=== PATIENT | male | born 1965 ===

== ENCOUNTER 2020-01-23 10:03 | Emergency (ER) | payer SELFPAY ==
[2020-01-23 10:12] VITALS: BP 133/80
[2020-01-23] MEDS ORDERED: HYDROcodone/ACETAMINOPHEN 10-325MG TAB PO ONE (10:56)
[2020-01-23] MEDS ORDERED: IBUPROFEN 600 MG TAB PO ONE (10:56)
--- NOTE | 2020-01-23 11:17 | Emergency Department Report ---
ED Male HPI - General Chief complaint: Abdominal Pain Stated complaint: ABD AND GROIN PAIN Time Seen by Provider: 01/23/20 10:55 Source: patient, family Mode of arrival: Ambulatory Limitations: No Limitations - History of Present Illness Initial comments: 54-year-old -Romanian male presents to the emergency room for 1 day history of right flank pain that radiates to his right testicle. Patient states that the pain is worse with movement or twisting. Patient denies any fever no nausea no vomiting no penile discharge no diarrhea no constipation no hematuria. Patient does report an increase in bowel frequency. Patient denies any past me dical history takes no medications on a daily basis and has no known drug allergies MD Complaint: testicle pain - Related Data Previous Rx's Medication Instructions Recorded Last Taken Type Acetaminophen/Codeine [Tylenol 1 tab PO Q6H PRN #12 tab 01/23/20 Unknown Rx /Codeine # 3 tab] Ibuprofen [Motrin 600 MG tab] 600 mg PO Q8H PRN #30 tablet 01/23/20 Unknown Rx Allergies Allergy/AdvReac Type Severity Reaction Status Date / Time No Known Allergies Allergy Unverified 01/23/20 10:07 ED Review of Systems ROS: Stated complaint: ABD AND GROIN PAIN Other details as noted in HPI ED Past Medical Hx - Past Medical History Previous Medical History?: No - Surgical History Past Surgical History?: No - Social History Smoking Status: Never Smoker Substance Use Type: None - Medications Home Medications: Home Medications Medication Instructions Recorded Confirmed Last Taken Type Acetaminophen/Codeine [Tylenol 1 tab PO Q6H PRN #12 tab 01/23/20 Unknown Rx /Codeine # 3 tab] Ibuprofen [Motrin 600 MG tab] 600 mg PO Q8H PRN #30 tablet 01/23/20 Unknown Rx ED Physical Exam - General Limitations: No Limitations General appearance: alert, in no apparent distress - Head Head exam: Present: atraumatic, normocephalic - Eye Eye exam: Present: normal appearance - ENT ENT exam: Present: mucous membranes moist - GI/Abdominal GI/Abdominal exam: Present: soft. Absent: distended, tenderness - exam: Present: testicular tenderness - Extremities Exam Extremities exam: Present: normal inspection - Back Exam Back exam: Present: normal inspection - Neurological Exam Neurological exam: Present: alert, oriented X3 - Psychiatric Psychiatric exam: Present: normal affect, normal mood - Skin Skin exam: Present: warm, dry, intact, normal color. Absent: rash ED Course Vital Signs 01/23/20 01/23/20 01/23/20 10:07 11:10 11:11 Temperature 98.3 F Pulse Rate 72 Respiratory 18 20 20 Rate Blood Pressure 133/80 O2 Sat by Pulse 99 Oximetry ED Medical Decision Making - Lab Data Result diagrams: 01/23/20 12:05 01/23/20 12:05 - Radiology Data Radiology results: report reviewed Print Report Referring Physician:ESSENCE MONTGOMERYPatient Name:BRY MESAOPatient ID:[id number] of :[id number]:MaleAccession:[id number] Date:2-88-36Kpsrpd Status:Finalized Findings [address] [address] Ultrasound Report Signed Patient: BRY SHUKLA MR#: [id number] : 1965 Acct:[id number] Age/Sex: 54 / M ADM Date: 01/23/20 Loc: ED Attending Dr: Ordering Physician: ISABEL LY Date of Service: 01/23/20 Procedure(s): US testicular doppler comp Accession Number(s): [id number] cc: ISABEL LY US testicular doppler comp INDICATION / CLINICAL INFORMATION: increase pain in right scrotum Doppler ultrasound and spectral analysis was performed on both testicles COMPARISON: None available. FINDINGS: The testicles are normal in size and appearance. A small right-sided hydrocele is present. A small left epididymal cyst is present. Normal symmetric blood flow seen in both testicles. IMPRESSION: 1. Small right-sided hydrocele 2. Small left epididymal cyst 3. Normal symmetric blood flow in both testicles Signer Name: Everton Mclean MD FACR Signed: 01/23/2020 12:53 PM Workstation Name: [id number] Transcribed By: MS Dictated By: Everton Mclean MD Electronically Authenticated By: Everton Mclean MD Signed Date/Time: 01/23/20 1253 DD/ 1241 TD/TT: - Medical Decision Making 54-year-old -Romanian male presents to the emergency room for 1 day history of right flank pain that radiates to his right testicle. Patient states that the pain is worse with movement or twisting. Patient denies any fever no nausea no vomiting no penile discharge no diarrhea no constipation no hematuria. Patient does report an increase in bowel frequency. Patient denies any past medical history takes no medications on a daily basis and has no known drug allergies CBC, CMP, urinalysis, ultrasound testicular, Hymera and ibuprofen for pain management. Ultrasound showed that she had a hydrocele. Recommend wearing a jockstrap or u nderwear that are tight to help elevate the testicle. I recommend pain medication. Do not take Tylenol 3 and operate heavy machinery. It is very important for you to follow-up with a urologist I have listed 1 below for your convenience. Critical care attestation.: If time is entered above; I have spent that time in minutes in the direct care of this critically ill patient, excluding procedure time. ED Disposition Clinical Impression: Hydrocele in adult Disposition: DC-01 TO HOME OR SELFCARE Is pt being admited?: No Does the pt Need Aspirin: No Condition: Stable Instructions: Hydrocele (ED) Additional Instructions: Ultrasound showed that she had a hydrocele. Recommend wearing a jockstrap or underwear that are tight to help elevate the testicle. I recommend pain me dication. Do not take Tylenol 3 and operate heavy machinery. It is very important for you to follow-up with a urologist I have listed 1 below for your convenience. Prescriptions: Ibuprofen [Motrin 600 MG tab] 600 mg PO Q8H PRN #30 tablet PRN Reason: Pain Acetaminophen/Codeine [Tylenol /Codeine # 3 tab] 1 tab PO Q6H PRN #12 tab PRN Reason: Pain , Severe (7-10) Referrals: PRIMARY CARE, [Primary Care Provider] - 3-5 Days LILLIAM DOMINGUEZ MD [Staff Physician] - 3-5 Days Forms: Work/School Release Form(ED)
[2020-01-23 11:19] LABS: Bacteria,Urine 4+ /HPF (Negative); Bilirubin,Urine NEG (Negative); Blood,Urine SM (Negative); Color,Urine Yellow (Yellow); Protein,Urine <15 mg/dL mg/dL (Negative); Sperm,Urine 3+ /HPF (NP); Urobilinogen,Urine < 2.0 mg/dL (<2.0)
[2020-01-23 12:23] LABS: Basophils % (Auto) 1.1 % (0.0-1.8); Eosinophils # (Auto) 0.1 K/mm3 (0.0-0.4); Eosinophils % (Auto) 3.4 % (0.0-4.3); Hematocrit 45.6 % (35.5-45.6); Hemoglobin 15.5 gm/dl (11.8-15.2); Lymphocytes # (Auto) 1.8 K/mm3 (1.2-5.4); Lymphocytes % (Auto) 49.9 % (13.4-35.0); Mean Corpuscular HGB Conc 34 % (32-34); Mean Corpuscular Volume 85 fl (84-94); Monocytes # (Auto) 0.3 K/mm3 (0.0-0.8); Monocytes % (Auto) 7.8 % (0.0-7.3); Platelet Count 177 K/mm3 (140-440); Red Blood Count 5.35 M/mm3 (3.65-5.03); Red Cell Distribution Width 13.2 % (13.2-15.2)
[2020-01-23 12:55] LABS: Alanine Aminotransferase 28 units/L (7-56); Albumin 4.5 g/dL (3.9-5); BUN/Creatinine Ratio 11; Blood Urea Nitrogen 12 mg/dL (9-20); Calcium 9.4 mg/dL (8.4-10.2); Hemolysis Index 10
--- NOTE | 2020-01-23 12:57 | Ultrasound Report ---
US testicular doppler comp INDICATION / CLINICAL INFORMATION: increase pain in right scrotum Doppler ultrasound and spectral analysis was performed on both testicles COMPARISON: None available. FINDINGS: The testicles are normal in size and appearance. A small right-sided hydrocele is present. A small le ft epididymal cyst is present. Normal symmetric blood flow seen in both testicles. IMPRESSION: 1. Small right-sided hydrocele 2. Small left epididymal cyst 3. Normal symmetric blood flow in both testicles Signer Name: Everton Mclean MD FACJazmin Signed: 01/23/2020 12:53 PM Workstation Name: [id number]
== END 2020-01-23 13:41 | disposition home or self-care (01) ==
LOC: ED 10:03
DX: N43.3 Hydrocele, unspecified (principal); Z79.1 Long term (current) use of non-steroidal anti-inflammatories (NSAID); Z79.899 Other long term (current) drug therapy
CPT/HCPCS: 36415; 80053; 81001; 85025; 93975